=== PATIENT | male | born 1950 | race Caucasian/White ===

== ENCOUNTER 2017-11-29 16:37 | Inpatient (IN) | payer MEDICARE ==
[2017-11-29] MEDS ORDERED: PANTOPRAZOLE 40 MG/10 ML VIAL IVP STA (16:57)
--- NOTE | 2017-11-29 17:07 | ED ---
General Adult HPI - General Chief complaint: GI Bleed Stated complaint: Sent by [facility] Time Seen by Provider: 11/29/17 16:56 Source: patient, RN notes reviewed, old records reviewed Mode of arrival: ambulatory Limitations: no limitations - History of Present Illness Initial comments: 67-year-old male presents for evaluation of low hemoglobin. Patient had blood testing done as an outpatient and was found at hemoglobin 6.5. Approximately one month prior patient had an episode of hematemesis after consuming a large amount of alcohol. He states that he had some dark stools for several days following this episode but this has since cleared and he is having normal bowel movements. No bright red blood, no melena. He has felt short of breath and fatigue over the past several weeks. He's had no continued vomiting or rectal bleeding. No significant abdominal pain. He does take baby aspirin and he takes Aleve for arthritis pain. No blood thinners. Patient has not had alcohol in the past one month. - Related Data Home Medications Medication Instructions Recorded Confirmed Aspirin EC [Ecotrin Low Dose] 81 mg PO DAILY 11/29/17 11/29/17 Cyanocobalamin [Vitamin B-12] 500 mcg PO DAILY 11/29/17 11/29/17 Multivitamins, Thera [Multivitamin 1 tab PO DAILY 11/29/17 11/29/17 (formulary)] Naproxen Sodium [Aleve] 220 mg PO BID 11/29/17 11/29/17 Omeprazole Magnesium [PriLOSEC OTC] 20 mg PO DAILY 11/29/17 11/29/17 Simvastatin [Zocor] 10 mg PO DAILY 11/29/17 11/29/17 amLODIPine BESYLATE/BENAZEPRIL 1 cap PO DAILY 11/29/17 11/29/17 [amLODIPine BESYLATE/BENAZEPRIL 5-10 mg] glipiZIDE [Glucotrol] 10 mg PO DAILY 11/29/17 11/29/17 Allergies Allergy/AdvReac Type Severity Reaction Status Date / Time acetaminophen [From Vicodin] AdvReac Nausea Verified 11/29/17 17:18 codeine AdvReac Nausea Verified 11/29/17 17:18 hydrocodone [From Vicodin] AdvReac Nausea Verified 11/29/17 17:18 Sulfa (Sulfonamide AdvReac Nausea & Verified 11/29/17 17:18 Antibiotics) Vomiting Review of Systems ROS Statement: Those systems with pertinent positive or pertinent negative responses have been documented in the HPI. ROS Other: All systems not noted in ROS Statement are negative. Past Medical History Past Medical History: No Reported History, Diabetes Mellitus Additional Past Medical History / Comment(s): Upper GI bleed Past Surgical History: Orthopedic Surgery Past Psychological History: No Psychological Hx Reported Smoking Status: Never smoker Past Alcohol Use History: None Reported Past Drug Use History: None Reported General Exam Limitations: no limitations General appearance: alert, in no apparent distress Head exam: Present: atraumatic, normocephalic Eye exam: Present: normal appearance, PERRL, EOMI ENT exam: Present: normal exam Neck exam: Present: normal inspection. Absent: tenderness, meningismus Respiratory exam: Present: normal lung sounds bilaterally. Absent: respiratory distress, wheezes Cardiovascular Exam: Present: regular rate, normal rhythm GI/Abdominal exam: Present: soft. Absent: distended, tenderness, guarding Rectal exam: Present: normal inspection, hemorrhoids. Absent: black stool, bloody stool Extremities exam: Present: normal inspection, full ROM, normal capillary refill. Absent: pedal edema Neurological exam: Present: alert, oriented X3, CN II-XII intact. Absent: motor sensory deficit Psychiatric exam: Present: normal affect, normal mood Skin exam: Present: warm, dry, intact. Absent: cyanosis, diaphoretic Course Vital Signs 11/29/17 11/29/17 11/29/17 16:48 18:15 19:37 Temperature 98.4 F 98.1 F Pulse Rate 92 86 72 Respiratory 16 20 16 Rate Blood Pressure 112/69 126/60 132/69 O2 Sat by Pulse 100 99 100 Oximetry 11/29/17 11/29/17 11/29/17 19:41 19:51 20:21 Temperature 98.3 F 98.4 F 98.5 F Pulse Rate 71 70 74 Respiratory 16 18 18 Rate Blood Pressure 131/70 128/62 123/62 O2 Sat by Pulse 100 100 99 Oximetry Medical Decision Making - Medical Decision Making 67-year-old male with anemia which is symptomatic. Repeat hemoglobin is obtained, this is 6.6. Patient is transfused 1 unit. Hemoccult is negative although there was minimal stool in the rectal vault. Patient does have pancytopenia with leukopenia and platelet count 118. He is started on Protonix , there is concern for upper GI bleed given the history. He will be admitted for repeat hemoglobin and GI consultation. - Lab Data Result diagrams: 11/29/17 17:10 11/29/17 17:10 Lab Results 11/29/17 11/29/17 11/29/17 Range/Units 17:10 17:10 17:10 WBC (3.8-10.6) k/uL RBC (4.30-5.90) m/uL Hgb (13.0-17.5) gm/dL Hct (39.0-53.0) % MCV (80.0-100.0) fL MCH (25.0-35.0) pg MCHC (31.0-37.0) g/dL RDW (11.5-15.5) % Plt Count (150-450) k/uL Neutrophils % % Lymphocytes % % Monocytes % % Eosinophils % % Basophils % % Neutrophils # (1.3-7.7) k/uL Lymphocytes # (1.0-4.8) k/uL Monocytes # (0-1.0) k/uL Eosinophils # (0-0.7) k/uL Basophils # (0-0.2) k/uL Hypochromasia Poikilocytosis Anisocytosis PT (9.0-12.0) sec INR (<1.2) APTT (22.0-30.0) sec Sodium 144 (137-145) mmol/L Potassium 4.6 (3.5-5.1) mmol/L Chloride 113 H (98-107) mmol/L Carbon Dioxide 21 L (22-30) mmol/L Anion Gap 10 mmol/L BUN 11 (9-20) mg/dL Creatinine 0.90 (0.66-1.25) mg/dL Est GFR (CKD-EPI)AfAm >90 (>60 ml/min/1.73 sqM) Est GFR (CKD-EPI)NonAf 87 (>60 ml/min/1.73 sqM) Glucose 111 H (74-99) mg/dL Calcium 8.8 (8.4-10.2) mg/dL Magnesium 1.7 (1.6-2.3) mg/dL Total Bilirubin 0.9 (0.2-1.3) mg/dL AST 35 (17-59) U/L ALT 33 (21-72) U/L Alkaline Phosphatase 119 (38-126) U/L Total Creatine Kinase (55-170) U/L CK-MB (CK-2) (0.0-2.4) ng/mL CK-MB (CK-2) Rel Index Total Protein 6.2 L (6.3-8.2) g/dL Albumin 3.1 L (3.5-5.0) g/dL Stool Occult Blood Negative (Negative) Blood Type O Positive Blood Type Recheck No Antibody Screen NEGATIVE Crossmatch See Detail Spec Expiration Date 12/02/2017 - 230911/29/17 11/29/17 11/29/17 Range/Units 17:10 17:10 17:10 WBC 2.8 L (3.8-10.6) k/uL RBC 2.52 L (4.30-5.90) m/uL Hgb 6.6 L* (13.0-17.5) gm/dL Hct 22.0 L (39.0-53.0) % MCV 87.5 (80.0-100.0) fL MCH 26.4 (25.0-35.0) pg MCHC 30.2 L (31.0-37.0) g/dL RDW 17.2 H (11.5-15.5) % Plt Count 118 L (150-450) k/uL Neutrophils % 37 % Lymphocytes % 43 % Monocytes % 7 % Eosinophils % 8 % Basophils % 1 % Neutrophils # 1.0 L (1.3-7.7) k/uL Lymphocytes # 1.2 (1.0-4.8) k/uL Monocytes # 0.2 (0-1.0) k/uL Eosinophils # 0.2 (0-0.7) k/uL Basophils # 0.0 (0-0.2) k/uL Hypochromasia Marked Poikilocytosis Marked Anisocytosis Slight PT 14.1 H (9.0-12.0) sec INR 1.5 H (<1.2) APTT 27.3 (22.0-30.0) sec Sodium (137-145) mmol/L Potassium (3.5-5.1) mmol/L Chloride (98-107) mmol/L Carbon Dioxide (22-30) mmol/L Anion Gap mmol/L BUN (9-20) mg/dL Creatinine (0.66-1.25) mg/dL Est GFR (CKD-EPI)AfAm (>60 ml/min/1.73 sqM) Est GFR (CKD-EPI)NonAf (>60 ml/min/1.73 sqM) Glucose (74-99) mg/dL Calcium (8.4-10.2) mg/dL Magnesium (1.6-2.3) mg/dL Total Bilirubin (0.2-1.3) mg/dL AST (17-59) U/L ALT (21-72) U/L Alkaline Phosphatase (38-126) U/L Total Creatine Kinase 164 (55-170) U/L CK-MB (CK-2) 2.0 (0.0-2.4) ng/mL CK-MB (CK-2) Rel Index 1.2 Total Protein (6.3-8.2) g/dL Albumin (3.5-5.0) g/dL Stool Occult Blood (Negative) Blood Type Blood Type Recheck Antibody Screen Crossmatch Spec Expiration Date Disposition Clinical Impression: GI bleed Disposition: ADMITTED IP TO THIS [facility] Condition: Stable Is patient prescribed a controlled substance at d/c from ED?: No Referrals: Ryan Mackenzie III, MD [Primary Care Provider] - 1-2 days Decision to Admit Reason: Admit from EC Decision Date: 11/29/17 Decision Time: 20:31
[2017-11-29 18:11] LABS: Anisocytosis Slight; Basophils % (A) 1 %; Eosinophils # (A) 0.2 k/uL (0-0.7); Eosinophils % (A) 8 %; Hypochromasia Marked; Lymphocytes # (A) 1.2 k/uL (1.0-4.8); Lymphocytes % (A) 43 %; MCH 26.4 pg (25.0-35.0); MCHC 30.2 g/dL (31.0-37.0); MCV 87.5 fL (80.0-100.0); Mean Platelet Volume 8.6; Monocytes # (A) 0.2 k/uL (0-1.0); Monocytes % (A) 7 %; Neutrophils % (A) 37 %; Platelet Count 118 k/uL (150-450); Poikilocytosis Marked; RBC 2.52 m/uL (4.30-5.90); RDW 17.2 % (11.5-15.5); WBC 2.8 k/uL (3.8-10.6)
[2017-11-29 18:16] LABS: HGB 6.6 gm/dL (13.0-17.5)
[2017-11-29 18:18] LABS: INR 1.5 (<1.2); Partial Thromboplastin Time 27.3 sec (22.0-30.0); Prothrombin Time 14.1 sec (9.0-12.0)
[2017-11-29 18:27] LABS: ALT 33 U/L (21-72); AST 35 U/L (17-59); Albumin 3.1 g/dL (3.5-5.0); Alkaline Phosphatase 119 U/L (38-126); Anion Gap 10 mmol/L; Blood Urea Nitrogen 11 mg/dL (9-20); Calcium 8.8 mg/dL (8.4-10.2); Carbon Dioxide 21 mmol/L (22-30); Chloride 113 mmol/L (98-107); Glucose 111 mg/dL (74-99); Magnesium 1.7 mg/dL (1.6-2.3); Potassium 4.6 mmol/L (3.5-5.1); Sodium 144 mmol/L (137-145); Total Bilirubin 0.9 mg/dL (0.2-1.3); Total Protein 6.2 g/dL (6.3-8.2)
[2017-11-29] MEDS ORDERED: ONDANSETRON 4 MG/2 ML VIAL IVP PRN (20:26)
[2017-11-29] MEDS ORDERED: NALOXONE 0.4 MG/ML 1 ML VIAL IV PRN (20:26)
[2017-11-29 21:55] VITALS: BMI 30.5
[2017-11-29] MEDS: SODIUM CHLORIDE 0.9% 1,000 ML IV SCH (21:56)
[2017-11-29] MEDS: PANTOPRAZOLE 40 MG/10 ML VIAL IVP SCH (22:37)
[2017-11-30 05:59] LABS: Glucose,Whole Blood 82 mg/dL (75-99)
[2017-11-30] MEDS: INSULIN ASPART 100 UNIT/ML 1 ML 10 ML VIAL SQ SCH ×4 (06:42→20:54)
[2017-11-30] MEDS: CYANOCOBALAMIN 500 MCG TAB PO SCH (06:42)
--- NOTE | 2017-11-30 07:01 | HP ---
HISTORY AND PHYSICAL DATE OF SERVICE: 11/29/2017 CHIEF COMPLAINTS: GI bleed and low hemoglobin HISTORY OF PRESENT ILLNESS: This 67-year-old gentleman with a past medical history of multiple medical problems including diabetes mellitus, history of upper gastrointestinal bleed, being followed by Dr. Mackenzie in the outpatient setting had significant episode of bleeding on October 31. The patient apparently taken alcohol significant amount of hemoptysis and subsequently black-colored stools. Since the hemoptysis stopped, the patient did not seek any medical attention immediately, but yesterday the patient was complaining of progressively weak and tired and the patient was noted to have hemoglobin of 6.5 in the outpatient setting and the patient came to [facility] and admitted for evaluation and treatment. The patient previously had endoscopies, EGD about 10 years ago, and colonoscopy 3 years ago and polyp was removed. There is no history of fever, rigors. No headache, loss of consciousness, seizures. PAST MEDICAL HISTORY: History of diabetes mellitus, history of upper gastrointestinal bleed. MEDICATIONS: Prior to admission include home medications are: 1. Zocor 10 mg p.o. daily. 2. Prilosec 20 mg daily. 3. Multivitamins 1 p.o. daily. 4. Vitamin B12 500 mcg. 5. Glucotrol 50 mg daily. 6. Amlodipine besylate 1 capsule p.o. daily. 7. Aleve 220 mg p.o. b.i.d. 8. Ecotrin 81 mg daily. ALLERGIES: VICODIN, CODEINE, AND ANTIBIOTICS. FAMILY HISTORY: No history of heart disease or strokes in family. SOCIAL HISTORY: History of alcohol as mentioned earlier. No history of smoking. REVIEW OF SYSTEMS: ENT: No diminished hearing or vision. CARDIOVASCULAR: No angina. RESPIRATORY: No cough. GI: As mentioned earlier. : No dysuria. NERVOUS SYSTEM: No numbness, weakness. ALLERGY/IMMUNOLOGY: No asthma. MUSCULOSKELETAL: As mentioned earlier. HEMATOLOGY: As mentioned. ENDOCRINE: Diabetes. CONSTITUTIONAL: As mentioned earlier. DERMATOLOGY: Negative. RHEUMATOLOGY: Negative. PSYCHIATRY: As mentioned earlier. PHYSICAL EXAMINATION: Alert, oriented x3, pulse 71, blood pressure 149/70, respiration 18, temperature 96.7, pulse ox 99% on room air. HEENT: Conjunctivae pale. Oral mucosa pale. NECK: No jugular venous distention. No carotid bruit. No lymph node enlargement. CARDIOVASCULAR: S1, S2. No S3, no S4. RESPIRATORY: Breath sounds diminished in the bases. No rhonchi, no crackles. ABDOMEN: Soft, obese, mild diffuse discomfort on lower part of the abdomen. Otherwise no guarding, no rigidity. No mass palpable. No ascites. LEGS: No edema, no swelling. NERVOUS SYSTEM: Higher functions as mentioned earlier, moves all 4 limbs, no focal motor sensory deficits. LYMPHATICS: No lymphadenopathy in the neck, axillae, groin. SKIN: No ulcer, rash, bleeding. LAB STUDIES: WBC 2.4, hemoglobin 6.6, platelets are 118. INR 1.5. ASSESSMENT: 1. Acute gastrointestinal bleed with acute blood loss anemia, possibly from peptic ulcer disease or Chiquita-Martínez syndrome. 2. Mild pancytopenia of undetermined etiology. 3. Mild coagulopathy. 4. History of diabetes mellitus type 2. 5. History of gastrointestinal bleed. 6. History of degenerative joint disease. 7. NO CODE, NO CPR, NO VENT. RECOMMENDATIONS AND DISCUSSION: This 67-year-old gentleman who presented with multiple complex medical issues, will monitor the patient closely. Continue the current management and symptomatic treatment. Patient is given 1 unit transfusion. We will check the hemoglobin tomorrow. Otherwise I would also recommend consultation with Dr. Jones for possible of upper and lower endoscopies. Monitor blood sugars closely. Other than that avoid NSAIDs and aspirin for now. Proton pump inhibitors. Recommended to avoid alcohol which the patient is not taking anymore. Otherwise we will follow the patient closely and if the hemoglobin is still lower and patient is symptomatic, patient might need more transfusions. See orders for further details and prognosis guarded. Further recommendations to follow. Discussed with the patient who understands and agrees. MMODL / IJN: [id number] / JEREMÍAS
[2017-11-30 07:43] LABS: Anion Gap 8 mmol/L; Anisocytosis Slight; Basophils % (A) 1 %; Blood Urea Nitrogen 10 mg/dL (9-20); Calcium 8.5 mg/dL (8.4-10.2); Carbon Dioxide 23 mmol/L (22-30); Chloride 111 mmol/L (98-107); Eosinophils # (A) 0.2 k/uL (0-0.7); Eosinophils % (A) 8 %; Glucose 73 mg/dL (74-99); Hypochromasia Marked; Lymphocytes # (A) 1.2 k/uL (1.0-4.8); Lymphocytes % (A) 50 %; MCH 26.8 pg (25.0-35.0); MCHC 31.2 g/dL (31.0-37.0); MCV 85.8 fL (80.0-100.0); Mean Platelet Volume 8.9; Monocytes # (A) 0.2 k/uL (0-1.0); Monocytes % (A) 8 %; Neutrophils # (A) 0.7 k/uL (1.3-7.7); Neutrophils % (A) 30 %; Poikilocytosis Marked; Potassium 4.1 mmol/L (3.5-5.1); RBC 2.56 m/uL (4.30-5.90); RDW 17.2 % (11.5-15.5); Sodium 142 mmol/L (137-145); WBC 2.4 k/uL (3.8-10.6)
[2017-11-30 07:53] LABS: HGB 6.9 gm/dL (13.0-17.5)
[2017-11-30 08:14] LABS: Platelet Count 86 k/uL (150-450)
[2017-11-30] MEDS: glipiZIDE 10 MG TAB PO SCH (09:37)
[2017-11-30] MEDS: PANTOPRAZOLE 40 MG/10 ML VIAL IVP SCH ×2 (09:37→20:58)
[2017-11-30] MEDS: amLODIPine 5 MG TAB PO SCH (09:37)
[2017-11-30] MEDS: LISINOPRIL 10 MG TAB PO SCH (09:37)
[2017-11-30] MEDS: ATORVASTATIN 10 MG TAB PO SCH (09:37)
[2017-11-30 11:42] LABS: Glucose,Whole Blood 153 mg/dL (75-99)
[2017-11-30] MEDS: MULTIVITAMINS, THERA 1 EACH TAB PO SCH (12:23)
[2017-11-30] MEDS ORDERED: FUROSEMIDE 10 MG/ML 4 ML VIAL IV STA (15:44)
[2017-11-30 16:41] LABS: Glucose,Whole Blood 121 mg/dL (75-99)
[2017-11-30] MEDS: SODIUM CHLORIDE 0.9% 1,000 ML IV SCH (20:59)
[2017-11-30 21:04] LABS: Glucose,Whole Blood 151 mg/dL (75-99)
--- NOTE | 2017-11-30 21:43 | PN ---
PROGRESS NOTE DATE OF SERVICE: 11/30/2017. INTERVAL HISTORY: This 67-year-old gentleman who was admitted after acute gastrointestinal bleed with acute blood loss anemia, had hemoglobin, from only 6.9 from 6.6 after up to 1 unit transfusion. The patient is being closely monitored. No chest pain. No palpitations. No fever. No active bleeding is noted. PHYSICAL EXAM: Alert and oriented times three. Pulse 75, blood pressure 140/59, respiration 18, temperature 98.8, pulse ox 98% on room air. HEENT: Conjunctivae pale. Oral mucosa moist. Neck is no jugular venous distention. No carotid bruit. No lymph node enlargement. CARDIOVASCULAR: S1, S2. Respiration: Breath sounds diminished in the bases. A few rhonchi, no crackles. ABDOMEN: Soft, nontender. No mass palpable. Legs no edema. No swelling. Central nervous system: Higher functions as mentioned earlier. Moves all four extremities. No focal deficits. Lymphatics: No lymph nodes palpable in the neck, axillae or groin. SKIN: No ulcer, rash or bleeding. LAB STUDIES: WBC 2.5, hemoglobin 6.9 and glucose 153. ASSESSMENT: 1. Acute gastrointestinal bleed with acute blood loss anemia, possibly from peptic ulcer disease or Chiquita-Martínez syndrome. 2. Mild pancytopenia of undetermined etiology. 3. Mild coagulopathy. 4. History of diabetes type 2. 5. History of gastrointestinal bleed. 6. History of degenerative joint disease. 7. NO CODE, NO CPR, NO VENT. RECOMMENDATIONS AND DISCUSSION: I recommend to continue current medications, management and symptomatic treatment. Otherwise, at this time, I recommend two more units of transfusion with Lasix. Monitor fluid and electrolytes balance closely. Gastroenterology evaluation with possible upper endoscopy. Guarded prognosis because of multiple complex medical issues. Further recommendations to follow. Continue with Protonix at this time. MMODL / IJN: [id number] /
[2017-12-01 06:06] LABS: Glucose,Whole Blood 77 mg/dL (75-99)
[2017-12-01] MEDS: INSULIN ASPART 100 UNIT/ML 1 ML 10 ML VIAL SQ SCH ×4 (06:22→21:06)
[2017-12-01] MEDS: CYANOCOBALAMIN 500 MCG TAB PO SCH ×2 (06:33)
[2017-12-01 07:36] LABS: Anion Gap 9 mmol/L; Blood Urea Nitrogen 7 mg/dL (9-20); Calcium 8.5 mg/dL (8.4-10.2); Carbon Dioxide 24 mmol/L (22-30); Chloride 111 mmol/L (98-107); Glucose 70 mg/dL (74-99); Potassium 3.6 mmol/L (3.5-5.1); Sodium 144 mmol/L (137-145)
[2017-12-01] MEDS: PANTOPRAZOLE 40 MG/10 ML VIAL IVP SCH ×2 (07:46→21:06)
[2017-12-01 08:05] LABS: Anisocytosis Slight; Basophils % (A) 1 %; Eosinophils # (A) 0.1 k/uL (0-0.7); Eosinophils % (A) 4 %; HCT 25.5 % (39.0-53.0); Hypochromasia Marked; Lymphocytes # (A) 1.3 k/uL (1.0-4.8); Lymphocytes % (A) 50 %; MCH 26.8 pg (25.0-35.0); MCHC 31.5 g/dL (31.0-37.0); MCV 85.2 fL (80.0-100.0); Mean Platelet Volume 8.4; Monocytes # (A) 0.2 k/uL (0-1.0); Monocytes % (A) 9 %; Neutrophils # (A) 0.9 k/uL (1.3-7.7); Neutrophils % (A) 34 %; Poikilocytosis Marked; RBC 2.99 m/uL (4.30-5.90); RDW 17.1 % (11.5-15.5); WBC 2.7 k/uL (3.8-10.6)
[2017-12-01 08:13] LABS: Platelet Count 86 k/uL (150-450)
[2017-12-01] MEDS: amLODIPine 5 MG TAB PO SCH (10:11)
[2017-12-01] MEDS: MULTIVITAMINS, THERA 1 EACH TAB PO SCH (10:11)
[2017-12-01] MEDS: ATORVASTATIN 10 MG TAB PO SCH (10:11)
[2017-12-01] MEDS: LISINOPRIL 10 MG TAB PO SCH (10:11)
[2017-12-01] MEDS: glipiZIDE 10 MG TAB PO SCH (10:11)
[2017-12-01 10:39] LABS: Mixed Population RBC Present
[2017-12-01 11:18] LABS: Glucose,Whole Blood 95 mg/dL (75-99)
[2017-12-01 11:20] LABS: Hemoglobin A1C 6.5 % (4.0-6.0)
[2017-12-01] MEDS ORDERED: IV FLUID CONTINUATION 1,000 ML IV ONE (16:14)
[2017-12-01] MEDS ORDERED: PROPOFOL 10 MG/ML 20 ML VIAL IV ONE (16:18)
[2017-12-01] MEDS ORDERED: LIDOCAINE 1% INJ 10MG/ML (20 ML MDV) ONE (16:18)
[2017-12-01 16:27] LABS: Glucose,Whole Blood 60 mg/dL (75-99)
[2017-12-01 16:43] LABS: Glucose,Whole Blood 105 mg/dL (75-99)
[2017-12-01 17:06] LABS: Glucose,Whole Blood 126 mg/dL (75-99)
--- NOTE | 2017-12-01 17:06 | P.CONS ---
History of Present Illness - Reason for Consult Consult date: 11/30/17 Anemia, possible GI bleeding - History of Present Illness The patient is a 67-year-old male who was admitted through the emergency room because of profound anemia. Patient had blood testing done as an outpatient and was found at hemoglobin 6.5 and was advised to report to the emergency room for evaluation. On 10/31/2017 the patient had an episode of hematemesis after consuming a large amount of alcohol. He states that he had some dark stools for several days following that episode but this has since cleared and he is having normal bowel movements. No bright red blood, no melena. He has felt short of breath and fatigue over the past several weeks. He had no further vomiting or rectal bleeding. No significant abdominal pain. He does take baby aspirin and he takes Aleve for arthritis pain. No blood thinners. Patient has not had alcohol in the past one month. Review of Systems Constitutional: Denies fever, chills, sweats, weight gain, or loss. HEENT: Negative for migraines, blurred vision or loss, earaches, drainage, tinnitus, oral mucosal lesions, dysphagia, or odynophagia. CARDIAC: Negative for chest pain, arrhythmias, or palpitation. RESPIRATORY: Negative for shortness of breath, hemoptysis, cough, or sputum production. GI: See HPI for pertinent findings. : Negative for hematuria, urgency, frequency, polyuria, or dysuria. MUSCULOSKELETAL: Negative for muscle aches, swelling, arthritis, and arthralgias. NEUROLOGIC: Negative for stroke or TIA. ENDOCRINE: Negative for thyroid problems. SKIN: Negative for rash or itching. PSYCHIATRIC: Negative history for depression and anxiety Past Medical History Past Medical History: No Reported History, Diabetes Mellitus Additional Past Medical History / Comment(s): Upper GI bleed History of Any Multi-Drug Resistant Organisms: None Reported Past Surgical History: Orthopedic Surgery Additional Past Surgical History / Comment(s): L knee replacement Past Anesthesia/Blood Transfusion Reactions: No Reported Reaction Past Psychological History: No Psychological Hx Reported Smoking Status: Never smoker Past Alcohol Use History: None Reported Past Drug Use History: None Reported Medications and Allergies Home Medications Medication Instructions Recorded Confirmed Type Aspirin EC [Ecotrin Low Dose] 81 mg PO DAILY 11/29/17 11/29/17 History Cyanocobalamin [Vitamin B-12] 500 mcg PO DAILY 11/29/17 11/29/17 History Multivitamins, Thera [Multivitamin 1 tab PO DAILY 11/29/17 11/29/17 History (formulary)] Naproxen Sodium [Aleve] 220 mg PO BID 11/29/17 11/29/17 History Omeprazole Magnesium [PriLOSEC OTC] 20 mg PO DAILY 11/29/17 11/29/17 History Simvastatin [Zocor] 10 mg PO DAILY 11/29/17 11/29/17 History amLODIPine BESYLATE/BENAZEPRIL 1 cap PO DAILY 11/29/17 11/29/17 History [amLODIPine BESYLATE/BENAZEPRIL 5-10 mg] glipiZIDE [Glucotrol] 10 mg PO DAILY 11/29/17 11/29/17 History Allergies Allergy/AdvReac Type Severity Reaction Status Date / Time acetaminophen [From Vicodin] AdvReac Nausea Verified 11/29/17 17:18 codeine AdvReac Nausea Verified 11/29/17 17:18 hydrocodone [From Vicodin] AdvReac Nausea Verified 11/29/17 17:18 Sulfa (Sulfonamide AdvReac Nausea & Verified 11/29/17 17:18 Antibiotics) Vomiting Physical Exam Vitals: Vital Signs Temp Pulse Pulse Resp BP BP Pulse Ox 11/30/17 08:00 98.6 F 78 18 129/65 97 11/30/17 03:54 73 18 11/30/17 03:52 97.4 F L 73 18 113/67 97 11/30/17 00:00 97.0 F L 74 18 140/67 96 11/29/17 22:05 96.7 F L 71 18 149/70 99 11/29/17 21:15 96.9 F L 74 18 137/65 100 11/29/17 20:21 98.5 F 74 18 123/62 99 11/29/17 19:51 98.4 F 70 18 128/62 100 11/29/17 19:41 98.3 F 71 16 131/70 100 11/29/17 19:37 98.1 F 72 16 132/69 100 11/29/17 18:15 86 20 126/60 99 11/29/17 16:48 98.4 F 92 16 112/69 100 Intake and Output 11/29/17 11/30/17 11/30/17 22:59 06:59 14:59 Intake Total 310 10 500 Output Total 600 Balance 310 -590 500 Intake: IV 10 0.9 10 Oral 500 Blood Product 310 Rc As-1 Unit 310 [id number] Output: Urine 600 Other: Voiding Method Toilet Toilet Toilet Urinal Urinal Urinal # Voids 1 Weight 102.058 kg 102.8 kg General appearance: The patient is alert, oriented, in no acute distress. HET: Head is normocephalic and atraumatic. Pupils are equal and reactive. Oropharynx is clear without lesions. Neck: Supple without lymphadenopathy. Trachea midline. Heart: S1 S2. Regular rate and rhythm. Lungs: No crackles or wheezes are heard. No dullness to percussion. Abdomen: Soft, nontender, nondistended with bowel sounds. No peritoneal signs. No palpable organomegaly or masses. Extremities: Normal skin color and turgor. No cyanosis, rash, ulceration, clubbing, or edema. Radial and pedal pulses are 2/4 bilaterally. Neurological: No focal deficits. Strength and sensation are grossly intact. Results CBC & Chem 7: 12/01/17 06:43 12/01/17 06:43 Labs: Abnormal Lab Results - Last 24 Hours (Table) 11/29/17 11/29/17 11/29/17 Range/Units 17:10 17:10 17:10 WBC 2.8 L (3.8-10.6) k/uL RBC 2.52 L (4.30-5.90) m/uL Hgb 6.6 L* (13.0-17.5) gm/dL Hct 22.0 L (39.0-53.0) % MCHC 30.2 L (31.0-37.0) g/dL RDW 17.2 H (11.5-15.5) % Plt Count 118 L (150-450) k/uL Neutrophils # 1.0 L (1.3-7.7) k/uL PT (9.0-12.0) sec INR (<1.2) Chloride 113 H (98-107) mmol/L Carbon Dioxide 21 L (22-30) mmol/L Glucose 111 H (74-99) mg/dL POC Glucose (mg/dL) (75-99) mg/dL Total Protein 6.2 L (6.3-8.2) g/dL Albumin 3.1 L (3.5-5.0) g/dL Crossmatch See Detail 11/29/17 11/30/17 11/30/17 Range/Units 17:10 06:34 06:34 WBC 2.4 L (3.8-10.6) k/uL RBC 2.56 L (4.30-5.90) m/uL Hgb 6.9 L* (13.0-17.5) gm/dL Hct 22.0 L (39.0-53.0) % MCHC (31.0-37.0) g/dL RDW 17.2 H (11.5-15.5) % Plt Count 86 L (150-450) k/uL Neutrophils # 0.7 L (1.3-7.7) k/uL PT 14.1 H (9.0-12.0) sec INR 1.5 H (<1.2) Chloride 111 H (98-107) mmol/L Carbon Dioxide (22-30) mmol/L Glucose 73 L (74-99) mg/dL POC Glucose (mg/dL) (75-99) mg/dL Total Protein (6.3-8.2) g/dL Albumin (3.5-5.0) g/dL Crossmatch 11/30/17 Range/Units 11:40 WBC (3.8-10.6) k/uL RBC (4.30-5.90) m/uL Hgb (13.0-17.5) gm/dL Hct (39.0-53.0) % MCHC (31.0-37.0) g/dL RDW (11.5-15.5) % Plt Count (150-450) k/uL Neutrophils # (1.3-7.7) k/uL PT (9.0-12.0) sec INR (<1.2) Chloride (98-107) mmol/L Carbon Dioxide (22-30) mmol/L Glucose (74-99) mg/dL POC Glucose (mg/dL) 153 H (75-99) mg/dL Total Protein (6.3-8.2) g/dL Albumin (3.5-5.0) g/dL Crossmatch Assessment and Plan Assessment: Anemia likely on the basis of an upper GI source of bleeding. With his history , liver disease has to be considered. Plan: I agree with your current management. The patient has received blood transfusions and his hemoglobin is stable around 8. We will around an upper endoscopy tomorrow.
--- NOTE | 2017-12-01 17:17 | P.PCN ---
Date of Procedure: 12/01/17 Procedure(s) Performed: Procedure: Esophagogastroduodenoscopy and banding of esophageal varices. Preoperative diagnosis: Symptomatic anemia and history of GI bleeding. Postoperative diagnosis: Multiple columns of esophageal varices with stigmata of prior bleeding, S/P deployment of multiple esophageal bands. Preparation and sedation: Was provided by anesthesia. Brief clinical history: The patient is a 67-year-old male who was admitted through the emergency room because of profound anemia. Patient had blood testing done as an outpatient and was found at hemoglobin 6.5 and was advised to report to the emergency room for evaluation. On 10/31/2017 the patient had an episode of hematemesis after consuming a large amount of alcohol. He states that he had some dark stools for several days following that episode but this has since cleared and he is having normal bowel movements. No bright red blood , no melena. He has felt short of breath and fatigue over the past several weeks. He had no further vomiting or rectal bleeding. No significant abdominal pain. He does take baby aspirin and he takes Aleve for arthritis pain. No blood thinners. Patient has not had alcohol in the past one month. Other details are summarized in the history and physical and dictated consultations and progress notes. This evaluation is to assess for a source of upper GI bleeding and anemia. Procedure: With the patient on his left lateral decubitus position and after informed consent and adequate sedation, I passed the Olympus-GIF 160 video upper endoscope through the cricopharyngeus down the esophagus. There were multiple columns of esophageal varices of moderate size noted with couple showing stigmata of prior bleeding. The endoscope was then passed into the stomach which was insufflated with air and inspected in detail including the retroflex view in the cardia and find endoscope was passed through the pylorus into the duodenum. The stomach did not show any evidence of portal gastropathy or gastric varices. Pyloric channel, duodenal bulb, post bulbar area and descending duodenum appeared within normal limits. On the basis of his history, I proceeded to band the esophageal varices. The endoscope was withdrawn and the [employer] band applicator was attached to the tip of the endoscope and the endoscope was reintroduced under direct vision through the cricopharyngeus down the esophagus. Starting at the level of the GE junction and moving proximally in his spiral fashion I applied a total of 4 bands with no evidence of bleeding or immediate complications. The patient tolerated the procedure well. Plan: The patient was briefed regarding the findings. Will allow clear liquids today and advance diet tomorrow if tolerated. I would plan a repeat endoscopy for further banding in around 6 weeks. I will keep you updated on his progress.
--- NOTE | 2017-12-01 17:59 | PN ---
PROGRESS NOTE DATE OF SERVICE: 12/01/2017 This 67-year-old gentleman who was admitted with acute GI bleed is being evaluated by EGD by Dr. Jones. EGD performed by Dr. Jones showed multiple columns of esophageal varices, stigmata of prior bleeding, and esophageal bands were placed. No chest pain. No palpitations. No fever. On exam, alert and oriented x3. Pulse 69, blood pressure 114/58, respiration 16, temperature 97.6, pulse ox 97% on room air. HEENT: Conjunctivae normal. NECK: No jugular venous distention. CARDIOVASCULAR SYSTEM: S1, S2 muffled. RESPIRATORY SYSTEM: Breath sounds diminished at the bases. No rhonchi. No crackles. ABDOMEN: Soft, non-tender. LEGS: No edema. No swelling. NERVOUS SYSTEM: No focal deficit. LABS: WBC 2.6, hemoglobin 8. ASSESSMENT: 1. Acute gastrointestinal bleed with acute blood loss anemia with esophageal variceal bleeding. 2. Mild pancytopenia of undetermined etiology. 3. Mild coagulopathy. 4. History of diabetes mellitus, type 2. 5. History of gastrointestinal bleed. 6. Degenerative joint disease. 7. NO CODE, NO CPR, NO VENT. RECOMMENDATIONS AND DISCUSSION: I recommend to continue current medication, continue with monitoring, symptomatic treatment. Otherwise at this time I would recommend monitoring hemoglobin closely. I would also recommend ultrasound of the liver and gallbladder. We will continue to monitor. Further recommendations to follow. Will order a CT scan of the abdomen also. Prognosis guarded. Further recommendations to follow. See orders for further details. MMODL / IJN: [id number] /
[2017-12-01] MEDS: IOPAMIDOL-300 CONTRAST 30 ML VIAL (ORAL USE) PO PRN ×2 (18:02→19:05)
[2017-12-01] MEDS: SODIUM CHLORIDE 0.9% 1,000 ML IV SCH (19:04)
--- NOTE | 2017-12-01 20:36 | CT ---
EXAMINATION TYPE: CT abdomen pelvis wo con DATE OF EXAM: 12/01/2017 COMPARISON: NONE HISTORY: Cirrhosis. CT DLP: 967.7 mGycm Automated exposure control for dose reduction was used. TECHNIQUE: Helical acquisition of images was performed from the lung bases through the pelvis. FINDINGS: The lung bases are clear of consolidation. There is no pleural effusion. There is no pericardial effu griselda. There is moderate ascites fluid in the abdomen. Spleen is enlarged and measures 19 cm. Liver shows no focal defect. Gallbladder appears normal. Bile ducts are not dilated. There is no evidence of a panc reatic mass. There is no adrenal mass. Kidneys have normal size. There is no hydronephrosis. Ureters are not dilat ed. Bladder distends smoothly. I see no intestinal wall thickening. There are no dilated loops. Appen juan appears normal. There is no retroperitoneal adenopathy. There is 10 mm gastrohepatic lymph node. There is narrowing at L5-S1 disc space with vacuum disc. There is no compression fracture. There is a small hiatal hernia. IMPRESSION: MODERATE ASCITES. SPLENOMEGALY. SMALL HIATAL HERNIA. I DO NOT SEE EVIDENCE OF VARICES.
[2017-12-01 20:54] LABS: Glucose,Whole Blood 113 mg/dL (75-99)
[2017-12-02 06:03] LABS: Glucose,Whole Blood 99 mg/dL (75-99)
[2017-12-02] MEDS: INSULIN ASPART 100 UNIT/ML 1 ML 10 ML VIAL SQ SCH ×2 (06:11→12:07)
[2017-12-02] MEDS: CYANOCOBALAMIN 500 MCG TAB PO SCH (06:12)
[2017-12-02 06:36] LABS: Anion Gap 7 mmol/L; Blood Urea Nitrogen 7 mg/dL (9-20); Calcium 8.3 mg/dL (8.4-10.2); Carbon Dioxide 23 mmol/L (22-30); Chloride 110 mmol/L (98-107); Glucose 88 mg/dL (74-99); Potassium 3.6 mmol/L (3.5-5.1); Sodium 140 mmol/L (137-145)
[2017-12-02 06:46] LABS: Anisocytosis Slight; Basophils % (A) 1 %; Eosinophils # (A) 0.2 k/uL (0-0.7); Eosinophils % (A) 6 %; HCT 25.8 % (39.0-53.0); HGB 8.1 gm/dL (13.0-17.5); Hypochromasia Marked; Lymphocytes # (A) 1.3 k/uL (1.0-4.8); Lymphocytes % (A) 43 %; MCH 27.2 pg (25.0-35.0); MCHC 31.3 g/dL (31.0-37.0); Mean Platelet Volume 8.1; Monocytes # (A) 0.3 k/uL (0-1.0); Monocytes % (A) 10 %; Neutrophils # (A) 1.1 k/uL (1.3-7.7); Neutrophils % (A) 37 %; Platelet Count 107 k/uL (150-450); Poikilocytosis Marked; RBC 2.97 m/uL (4.30-5.90); RDW 16.8 % (11.5-15.5)
[2017-12-02] MEDS: PANTOPRAZOLE 40 MG/10 ML VIAL IVP SCH (08:17)
[2017-12-02] MEDS: LISINOPRIL 10 MG TAB PO SCH (08:17)
[2017-12-02] MEDS: ATORVASTATIN 10 MG TAB PO SCH (08:17)
[2017-12-02] MEDS: glipiZIDE 10 MG TAB PO SCH (08:17)
[2017-12-02] MEDS: amLODIPine 5 MG TAB PO SCH (08:17)
--- NOTE | 2017-12-02 09:56 | P.PN ---
Subjective Progress Note Date: 12/02/17 Principal diagnosis: Upper GI bleed esophageal varices Status post EGD variceal ligation. Feels well. No reports of hematemesis hematochezia melena. Anticipate discharge. CT abdomen and pelvis yesterday reported moderate ascites in the abdomen enlarged spleen liver no focal defect. No evidence of pancreatic mass. Bile ducts nondilated. Hemoglobin 8.1. Objective - Vital Signs Vital signs: Vital Signs Temp 97.1 F L 12/02/17 07:46 Pulse 77 12/02/17 07:46 Resp 16 12/02/17 07:46 BP 123/62 12/02/17 07:46 Pulse Ox 96 12/02/17 07:46 Intake & Output 12/01/17 12/02/17 12/02/17 18:59 06:59 18:59 Intake Total 400 240 400 Output Total 1400 300 Balance -1000 -60 400 Weight 102.6 kg Intake: IV 400 240 0.9 240 Oral 400 Output: Urine 1400 300 Other: Voiding Method Toilet Urinal # Voids 1 - Exam General appearance: The patient is alert, oriented, in no acute distress. HET: Head is normocephalic and atraumatic. Pupils are equal and reactive. Oropharynx is clear without lesions. Neck: Supple without lymphadenopathy. Trachea midline. Heart: S1 S2. Regular rate and rhythm. Lungs: No crackles or wheezes are heard. Abdomen: Soft, mild ascites, nontender, nondistended with bowel sounds. No peritoneal signs. No palpable organomegaly or masses. Extremities: Normal skin color and turgor. No cyanosis, rash, ulceration, clubbing, or edema. Radial and pedal pulses are 2/4 bilaterally. Neurological: No focal deficits. Strength and sensation are grossly intact. - Labs CBC & Chem 7: 12/02/17 06:10 12/02/17 06:10 Labs: Abnormal Lab Results - Last 24 Hours (Table) 11/29/17 12/01/17 12/01/17 Range/Units 17:10 06:43 16:26 WBC 2.7 L (3.8-10.6) k/uL RBC 2.99 L (4.30-5.90) m/uL Hgb 8.0 L (13.0-17.5) gm/dL Hct 25.5 L (39.0-53.0) % RDW 17.1 H (11.5-15.5) % Plt Count 86 L (150-450) k/uL Neutrophils # 0.9 L (1.3-7.7) k/uL Chloride (98-107) mmol/L BUN (9-20) mg/dL POC Glucose (mg/dL) 60 L (75-99) mg/dL Hemoglobin A1c 6.5 H (4.0-6.0) % Calcium (8.4-10.2) mg/dL 12/01/17 12/01/17 12/01/17 Range/Units 16:40 16:59 20:52 WBC (3.8-10.6) k/uL RBC (4.30-5.90) m/uL Hgb (13.0-17.5) gm/dL Hct (39.0-53.0) % RDW (11.5-15.5) % Plt Count (150-450) k/uL Neutrophils # (1.3-7.7) k/uL Chloride (98-107) mmol/L BUN (9-20) mg/dL POC Glucose (mg/dL) 105 H 126 H 113 H (75-99) mg/dL Hemoglobin A1c (4.0-6.0) % Calcium (8.4-10.2) mg/dL 12/02/17 12/02/17 Range/Units 06:10 06:10 WBC 3.0 L (3.8-10.6) k/uL RBC 2.97 L (4.30-5.90) m/uL Hgb 8.1 L (13.0-17.5) gm/dL Hct 25.8 L (39.0-53.0) % RDW 16.8 H (11.5-15.5) % Plt Count 107 L (150-450) k/uL Neutrophils # 1.1 L (1.3-7.7) k/uL Chloride 110 H (98-107) mmol/L BUN 7 L (9-20) mg/dL POC Glucose (mg/dL) (75-99) mg/dL Hemoglobin A1c (4.0-6.0) % Calcium 8.3 L (8.4-10.2) mg/dL Assessment and Plan (1) Esophageal varices Current Visit: Yes Status: Acute Code(s): I85.00 - ESOPHAGEAL VARICES WITHOUT BLEEDING SNOMED Code(s): 16959123 (2) History of ETOH abuse Current Visit: Yes Status: Acute Code(s): Z87.898 - PERSONAL HISTORY OF OTHER SPECIFIED CONDITIONS SNOMED Code(s): 786259315 (3) Ascites Current Visit: Yes Status: Acute Code(s): R18.8 - OTHER ASCITES SNOMED Code(s): 088741489 (4) GI bleed Current Visit: Yes Status: Acute Code(s): K92.2 - GASTROINTESTINAL HEMORRHAGE, UNSPECIFIED SNOMED Code(s): 75902581 (5) Splenomegaly Current Visit: Yes Status: Acute Code(s): R16.1 - SPLENOMEGALY, NOT ELSEWHERE CLASSIFIED SNOMED Code(s): 67786134 (6) Thrombocytopenia Current Visit: Yes Status: Acute Code(s): D69.6 - THROMBOCYTOPENIA, UNSPECIFIED SNOMED Code(s): 405576037 (7) Coagulopathy Current Visit: Yes Status: Acute Code(s): D68.9 - COAGULATION DEFECT, UNSPECIFIED SNOMED Code(s): 17521343 Plan: 1. Discharge per medicine. Hepatitis screen and alpha-fetoprotein marker requested. Inpatient paracentesis not planned at this time presently patient is denying abdominal discomfort distention minimal ascites appreciated on physical exam. Protonix 40 mg daily. No NSAIDs. No alcohol. Soft diet as tolerated. Return to office in 2 weeks for reevaluation with Dr. Jones. Assessment and plan of care discussed with Dr. Betancourt
[2017-12-02 11:43] VITALS: BP 118/57; PULSE 70; RESP 18; TEMP 97.6
[2017-12-02 12:09] LABS: Glucose,Whole Blood 80 mg/dL (75-99)
[2017-12-02 16:28] LABS: Alpha Fetoprotein, Tumor Mkr 4.1 ng/mL (0.0-7.9)
[2017-12-02 17:13] LABS: Hepatitis A Antibody IgM Non-Reactive (Non-Reactive); Hepatitis B Core IgM Non-Reactive (Non-Reactive)
--- NOTE | 2017-12-03 06:42 | DS ---
DISCHARGE SUMMARY DATE OF SERVICE: 12/02/2009. FINAL DIAGNOSES: 1. Acute gastrointestinal bleed with acute blood loss anemia, possibly esophageal variceal bleeding. 2. Rule out chronic liver disease. 3. Mild pancytopenia of undetermined etiology. 4. Mild coagulopathy. 5. Diabetes mellitus type 2. 6. History of gastrointestinal bleed. 7. Degenerative joint disease. 8. NO CODE, NO CARDIOPULMONARY RESUSCITATION, NO VENTILATOR. DISCHARGE DISPOSITION: The patient will be discharged in stable condition with guarded prognosis. HISTORY OF PRESENT ILLNESS: This is a 67-year-old gentleman with past medical history admitted with a GI bleed. Patient was transfused. Dr. Jones performed EGD that showed esophageal varices. CAT scan of the abdomen showed some splenomegaly as well. The patient had history of alcohol intake. I recommended to stop alcohol. Currently WBC 3, hemoglobin 8.1, and platelets 107. The patient will be discharged in a stable condition with guarded prognosis with the following advice. Diet is cardiac diet. Activity limited until followup followup. Follow up with Dr. Mackenzie in 2 to 3 days. Follow up with Dr. Jones as advised. MEDICATIONS ARE: 1. Norvasc 1 p.o. daily. 2. Vitamin B12 five hundred mcg p.o. daily. 3. Folic acid 1 mg p.o. daily. 4. Glucotrol 10 mg p.o. daily. 5. Multivitamin 1 p.o. daily. 6. Omeprazole 40 mg p.o. daily. 7. Zocor 10 mg p.o. daily. 8. Thiamine 100 mg p.o. daily. Once again, the patient will be discharged in a stable condition with a guarded prognosis. MMODL / IJN: [id number] /
== END 2017-12-02 12:43 | disposition home or self-care (01) | DRG 369 ==
LOC: EC 16:37 → 6SEL 20:31
PROVIDERS: ADMIT Hospitalist; ATTEND Hospitalist
PROC: 30233N1 Transfusion of Nonautologous Red Blood Cells into Peripheral Vein, Percutaneous Approach (ICD-10-PCS; principal; 2017-11-30)
PROC: 06L38CZ Occlusion of Esophageal Vein with Extraluminal Device, Via Natural or Artificial Opening Endoscopic (ICD-10-PCS; 2017-12-01)
DX: I85.01 Esophageal varices with bleeding (principal); D62 Acute posthemorrhagic anemia; D61.818 Other pancytopenia; D68.9 Coagulation defect, unspecified; R18.8 Other ascites; E11.9 Type 2 diabetes mellitus without complications; M19.90 Unspecified osteoarthritis, unspecified site; Z79.84 Long term (current) use of oral hypoglycemic drugs; Z96.652 Presence of left artificial knee joint; Z79.1 Long term (current) use of non-steroidal anti-inflammatories (NSAID); Z79.82 Long term (current) use of aspirin; Z79.899 Other long term (current) drug therapy; Z88.1 Allergy status to other antibiotic agents; Z88.5 Allergy status to narcotic agent; Z88.2 Allergy status to sulfonamides; K76.1 Chronic passive congestion of liver; Z86.010 Personal history of colon polyps; E66.9 Obesity, unspecified; Z68.30 Body mass index [BMI] 30.0-30.9, adult; F10.21 Alcohol dependence, in remission; R16.1 Splenomegaly, not elsewhere classified
CPT/HCPCS: 36415; 43244; 74176; 80048; 80053; 80074; 82105; 82272; 82550; 82553; 83036; 83735; 85025; 85610; 85730; 86850; 86900; 86901; 86920; 96374; 99285

== ENCOUNTER → 2017-12-04 | Outpatient (CLI) | payer MEDICARE ==
[2017-12-04 12:49] LABS: Anisocytosis Slight; Basophils % (A) 1 %; Eosinophils # (A) 0.3 k/uL (0-0.7); Eosinophils % (A) 9 %; HCT 27.4 % (39.0-53.0); HGB 8.5 gm/dL (13.0-17.5); Hypochromasia Marked; Lymphocytes # (A) 1.2 k/uL (1.0-4.8); Lymphocytes % (A) 39 %; MCH 26.6 pg (25.0-35.0); MCHC 30.9 g/dL (31.0-37.0); MCV 86.1 fL (80.0-100.0); Mean Platelet Volume 9.2; Monocytes # (A) 0.3 k/uL (0-1.0); Monocytes % (A) 8 %; Neutrophils # (A) 1.2 k/uL (1.3-7.7); Neutrophils % (A) 40 %; Platelet Count 100 k/uL (150-450); Poikilocytosis Marked; RBC 3.18 m/uL (4.30-5.90); RDW 17.4 % (11.5-15.5); WBC 3.1 k/uL (3.8-10.6)
== END | disposition home or self-care (01) ==
LOC: LABWHC1 11:23
PROVIDERS: ATTEND Nurse Practitioner
DX: I85.00 Esophageal varices without bleeding (principal); D64.9 Anemia, unspecified
CPT/HCPCS: 36415; 85025

== ENCOUNTER → 2018-01-02 | Outpatient (CLI) | payer MEDICARE ==
[2018-01-02 07:28] LABS: Anisocytosis Slight; HCT 27.1 % (39.0-53.0); HGB 8.3 gm/dL (13.0-17.5); Hypochromasia Marked; MCH 24.9 pg (25.0-35.0); MCHC 30.6 g/dL (31.0-37.0); MCV 81.2 fL (80.0-100.0); Mean Platelet Volume 7.8; Microcytosis Slight; Platelet Count 114 k/uL (150-450); Poikilocytosis Moderate; RBC 3.34 m/uL (4.30-5.90); RDW 16.9 % (11.5-15.5); WBC 3.5 k/uL (3.8-10.6)
[2018-01-02 07:48] LABS: ALT 26 U/L (21-72); AST 36 U/L (17-59); Albumin 3.8 g/dL (3.5-5.0); Alkaline Phosphatase 110 U/L (38-126); Anion Gap 8 mmol/L; Blood Urea Nitrogen 11 mg/dL (9-20); Calcium 9.4 mg/dL (8.4-10.2); Carbon Dioxide 25 mmol/L (22-30); Chloride 107 mmol/L (98-107); Glucose 197 mg/dL (74-99); Potassium 4.6 mmol/L (3.5-5.1); Sodium 140 mmol/L (137-145); Total Bilirubin 0.9 mg/dL (0.2-1.3); Total Protein 7.1 g/dL (6.3-8.2)
== END | disposition home or self-care (01) ==
LOC: LABWHC1 07:00
DX: K70.30 Alcoholic cirrhosis of liver without ascites (principal); D50.0 Iron deficiency anemia secondary to blood loss (chronic)
CPT/HCPCS: 36415; 80053; 85027

== ENCOUNTER → 2018-01-27 | Day surgery (SDC) | payer MEDICARE ==
[2018-01-23 08:18] VITALS: BMI 28.5
[~2018-01-27] MED LIST: LACTATED RINGERS 1,000 ML IV SCH; LIDOCAINE 1% 20 ML VIAL (10MG/ML) FOR IV START INTRADERMA ONE; LIDOCAINE 1% 20 ML VIAL (10MG/ML) FOR IV START INTRADERMA PRN; LIDOCAINE 1% INJ 10MG/ML (20 ML MDV) ONE; MIDAZOLAM 2 MG/2 ML VIAL IV PRN; ONDANSETRON 4 MG/2 ML VIAL IVP ONE; PROPOFOL 10 MG/ML 20 ML VIAL IV ONE
[2018-01-27 07:04] VITALS: TEMP 98.1
[2018-01-27 07:21] LABS: Glucose,Whole Blood 155 mg/dL (75-99)
[2018-01-27 08:20] VITALS: RESP 16
--- NOTE | 2018-01-27 08:27 | P.PCN ---
Date of Procedure: 01/27/18 Procedure(s) Performed: Procedure: Esophagogastroduodenoscopy and band ligation of esophageal varices. Preoperative diagnosis: History of alcoholic cirrhosis of the liver and GI bleeding from esophageal varices with band ligation for the first time 2017 Postoperative diagnosis: 1. Multiple columns of esophageal varices band ligated. 2. Gastritis consistent with portal gastropathy. 3. No active bleeding noted during this procedure. Preparation sedation: Was provided by anesthesia. Brief clinical history: The patient is a 67-year-old male with history of alcoholic cirrhosis of the liver with ascites and esophageal varices for which he was hospitalized in November with GI bleeding and anemia. An upper endoscopy performed December 04 revealed evidence of varices and 4 bands were applied. The patient is scheduled for this evaluation for further band ligation for total obliteration of the varices. Procedure: With the patient on his left lateral decubitus position and after informed consent and adequate sedation, I passed the Olympus-GIF 160 video upper endoscope through the cricopharyngeus down the esophagus. Multiple columns of varices were seen in the distal esophagus terminating at the level of the GE junction. Those were medium in size with no stigmata of bleeding. The endoscope was then passed into the stomach which was insufflated with air and inspected in detail including the retroflex view in the cardia. There was mottling and erythema and other changes consistent with portal gastropathy but I saw no gastric varices or bleeding. Pyloric channel, duodenal bulb, post bulbar area and descending duodenum appeared normal. At this point I proceeded with band ligation. The [employer] applicator was advanced to the tip of the endoscope and the endoscope was reintroduced down the esophagus. A total of 4 bands were applied in a spiral fashion starting at the level of the GE junction. There was no immediate complications or bleeding, then the endoscope was withdrawn. The patient tolerated the procedure well. Plan: The patient with stable liquid diet today Will reevaluate in the office and I anticipate follow-up in the office in 4-6 weeks to schedule further banding. I'll keep you updated on his progress.
[2018-01-27 08:33] VITALS: BP 144/73; PULSE 74
== END | disposition home or self-care (01) ==
LOC: ORWHC2ENDO 06:43
DX: I85.11 Secondary esophageal varices with bleeding (principal); K70.31 Alcoholic cirrhosis of liver with ascites; K29.70 Gastritis, unspecified, without bleeding; E11.9 Type 2 diabetes mellitus without complications; I10 Essential (primary) hypertension; E78.5 Hyperlipidemia, unspecified; Z88.0 Allergy status to penicillin; Z88.2 Allergy status to sulfonamides; Z88.5 Allergy status to narcotic agent; K21.9 Gastro-esophageal reflux disease without esophagitis; Z79.899 Other long term (current) drug therapy; Z96.652 Presence of left artificial knee joint; Z79.84 Long term (current) use of oral hypoglycemic drugs
CPT/HCPCS: 43244; J2405; J2001; J2704

== ENCOUNTER → 2018-02-02 | Outpatient (CLI) | payer MEDICARE ==
[2018-02-02 08:25] LABS: Anisocytosis Moderate; HCT 35.4 % (39.0-53.0); Hypochromasia Moderate; MCH 25.9 pg (25.0-35.0); MCV 83.7 fL (80.0-100.0); Mean Platelet Volume 8.5; Microcytosis Slight; Platelet Count 111 k/uL (150-450); RBC 4.23 m/uL (4.30-5.90); RDW 21.9 % (11.5-15.5); WBC 4.3 k/uL (3.8-10.6)
[2018-02-02 09:10] LABS: ALT 33 U/L (21-72); AST 29 U/L (17-59); Albumin 3.9 g/dL (3.5-5.0); Alkaline Phosphatase 118 U/L (38-126); Anion Gap 7 mmol/L; Blood Urea Nitrogen 10 mg/dL (9-20); Carbon Dioxide 28 mmol/L (22-30); Chloride 108 mmol/L (98-107); Glucose 167 mg/dL (74-99); Potassium 4.6 mmol/L (3.5-5.1); Sodium 143 mmol/L (137-145); Total Bilirubin 1.5 mg/dL (0.2-1.3); Total Protein 7.3 g/dL (6.3-8.2)
== END | disposition home or self-care (01) ==
LOC: LABWHC1 08:12
DX: D50.0 Iron deficiency anemia secondary to blood loss (chronic) (principal); K70.31 Alcoholic cirrhosis of liver with ascites
CPT/HCPCS: 36415; 80053; 85027

== ENCOUNTER → 2019-01-12 | Outpatient (CLI) | payer MEDICARE ==
--- NOTE | 2019-01-12 15:54 | US ---
EXAMINATION TYPE: US scrotum with doppler. Grayscale and color Doppler Duplex imaging performed of dinah cook scrotum. DATE OF EXAM: 01/12/2019 COMPARISON: NONE CLINICAL HISTORY: R36.1 Hematospermia. Hematospermia EXAM MEASUREMENTS: TESTICLES: Right Testicle: 4.8 x 2.3 x 3.3 cm Left Testicle: 4.7 x 2.5 x 3.5 cm EPIDIDYMIS HEAD: Right Epididymis: 1.5 cm Left Epididymis: 1.7 cm Doppler performed to assess for testicular vascularity; good bilateral color flow and waveforms are s een. There is no evidence of testicular torsion. Presence of hydroceles: None Presence of varicoceles: yes, bilaterally cystic cluster right epididymis = 0.6 x 0.5 x 0.6cm, benign Calcification adjacent to right testicle = 0.6cm. Additionally there are multiple punctate calcificat ions in the right testicle. Multiple cystic areas left epididymis, benign cystic area left testicle = 0.4 x 0.3cm. This appears simple and likely benign. IMPRESSION: 1. Right-sided testicular microlithiasis. 2. Bilateral varicoceles. This can be physiologic on the left however this is an abnormal finding on the right and further evaluation with CT abdomen and pelvis with contrast is recommended to exclude c ompression by an abdominal pelvic mass. 3. Bilateral epididymal cysts, benign findings. 4. Within the left testicle there is a 0.4 cm intratesticular cyst, also favored to be benign.
== END | disposition home or self-care (01) ==
LOC: RADUSWWP 14:56
PROVIDERS: ATTEND Family Medicine
DX: I86.1 Scrotal varices (principal); N44.2 Benign cyst of testis; N50.3 Cyst of epididymis
CPT/HCPCS: 76870; 93975

== ENCOUNTER → 2020-01-07 | Outpatient (CLI) | payer MEDICARE ==
[2020-01-07 10:20] LABS: ALT 24 U/L (4-49); AST 35 U/L (17-59); African American GFR (CKD) >90 (>60 ml/min/1.73 sqM); Albumin 4.2 g/dL (3.5-5.0); Alkaline Phosphatase 109 U/L (38-126); Amylase 84 U/L (30-110); Anion Gap 8 mmol/L; Basophils % (A) 1 %; Blood Urea Nitrogen 11 mg/dL (9-20); Calcium 9.8 mg/dL (8.4-10.2); Carbon Dioxide 27 mmol/L (22-30); Chloride 107 mmol/L (98-107); Eosinophils # (A) 0.3 k/uL (0-0.7); Eosinophils % (A) 6 %; Glucose 172 mg/dL (74-99); HCT 43.8 % (39.0-53.0); HGB 14.6 gm/dL (13.0-17.5); Lymphocytes # (A) 1.3 k/uL (1.0-4.8); Lymphocytes % (A) 24 %; MCH 31.2 pg (25.0-35.0); MCHC 33.3 g/dL (31.0-37.0); MCV 93.6 fL (80.0-100.0); Mean Platelet Volume 8.7; Monocytes # (A) 0.4 k/uL (0-1.0); Monocytes % (A) 7 %; Neutrophils # (A) 3.3 k/uL (1.3-7.7); Neutrophils % (A) 61 %; Non-African American GFR(CKD) >90 (>60 ml/min/1.73 sqM); Potassium 4.8 mmol/L (3.5-5.1); RBC 4.68 m/uL (4.30-5.90); RDW 12.9 % (11.5-15.5); Sodium 142 mmol/L (137-145); Total Bilirubin 0.9 mg/dL (0.2-1.3); Total Protein 7.2 g/dL (6.3-8.2); WBC 5.4 k/uL (3.8-10.6)
[2020-01-07 10:32] LABS: Platelet Count 120 k/uL (150-450)
[2020-01-07 11:20] LABS: Anisocytosis (M) Present
--- NOTE | 2020-01-07 11:27 | CT ---
EXAMINATION TYPE: CT abdomen w con DATE OF EXAM: 01/07/2020 COMPARISON: 12/01/2017 INDICATION: LUQ pain x1 month. DLP: 1079.50 mGycm, Automated exposure control for dose reduction was used. CONTRAST: 100 mL of Isovue 300. Study performed with Oral Contrast TECHNIQUE: Axial images were obtained from above the diaphragm to the iliac crests in the axial plane at 5 mm thick sections. Reconstructed images are reviewed on the computer in the coronal plane. FINDINGS: Limited CT sections are obtained the lung bases. The lung bases are clear. Coronary artery calcific ation is present. Small hiatal hernia is present CT ABDOMEN: Liver: Normal Spleen: There is marked enlargement of the spleen measuring 16.4 cm in craniocaudal dimension. Calcif ied splenic artery is evident. Pancreas: Normal Adrenal glands: The adrenal glands are normal. Gallbladder: Normal Kidneys: No masses are evident. No hydronephrosis is present. No cysts are present. Delayed images were obtained through the kidneys, which remain unremarkable. Aorta: Vascular calcification is within the aorta. Inferior vena cava: Normal. Loops of bowel visualized appear normal. There are some loops of bowel lacking oral contrast limiting their evaluation. IMPRESSIONS: 1. Marked splenomegaly, stable in size from comparison. 2. Previous ascites has resolved
[2020-01-07 18:12] LABS: EBV-EA (IgG) <0.2 AI; EBV-EBNA(IgG) >8.0 AI; EBV-VCA (IgG) >8.0 AI; EBV-VCA (IgM) <0.2 AI
== END | disposition home or self-care (01) ==
LOC: RADCTMAIN 09:09
PROVIDERS: ATTEND Nurse Practitioner Family
DX: R16.2 Hepatomegaly with splenomegaly, not elsewhere classified (principal)
CPT/HCPCS: 36415; 74160; 80053; 82150; 83690; 85025; 86663; 86664; 86665

== ENCOUNTER → 2022-04-01 | Outpatient (CLI) | payer MEDICARE ==
--- NOTE | 2022-04-01 09:15 | US ---
EXAMINATION TYPE: US abdomen complete DATE OF EXAM: 04/01/2022 COMPARISON: CT 01/07/2020 CLINICAL HISTORY: R10.11 RUQ PAIN, K70.30 ALCOHOLIC CIRRHOSIS. RUQ pain. Patient is NPO. TECHNIQUE: Multiple sonographic images of the abdomen are obtained. FINDINGS: EXAM MEASUREMENTS: Liver Length: 18.9 cm Gallbladder Wall: 0.2 cm CBD: 0.3 cm Spleen: 15.5 cm Right Kidney: 12.2 x 5.2 x 5.1 cm Left Kidney: 12.2 x 5.2 x 5.4 cm Pancreas: Tail obscured by overlying bowel gas Liver: Nodular contour to liver seen on prior CT is less well appreciated on ultrasound imaging with low frequency probe. Gallbladder: Appears small in size with fundal echogenic focus, non shadowing= 0.4 cm Evidence for sonographic Guerrero's sign: neg CBD: wnl Spleen: Enlarged in size with echogenic lesions visualized throughout Right Kidney: No hydronephrosis or masses seen Left Kidney: No hydronephrosis or masses seen Upper IVC: Obscured by overlying bowel gas Abd Aorta: Proximal obscured by overlying bowel gas IMPRESSION: 1. Hepatic cirrhosis without evidence for suspicious mass. No evidence for acute process. 2. Cholelithiasis. 3. Mild splenomegaly could be secondary to portal hypertension from #1.
== END | disposition home or self-care (01) ==
LOC: RADUSWWP 06:40
PROVIDERS: ATTEND Family Medicine
DX: K70.30 Alcoholic cirrhosis of liver without ascites (principal); K80.20 Calculus of gallbladder without cholecystitis without obstruction; D69.6 Thrombocytopenia, unspecified; R16.1 Splenomegaly, not elsewhere classified
CPT/HCPCS: 76700